=== PATIENT | male | born 1960 | race Two or more races ===

== ENCOUNTER 2022-02-12 11:26 | Emergency (ER) | payer MEDICAID ==
[~2022-02-12] VITALS: Ht 185.4 cm; Wt 112.0 kg
[2022-02-12 11:33] VITALS: BP 136/72
[2022-02-12 13:30] LABS: Basophils # (auto) 0.1 10 ^3/uL (0-0.2); Basophils % (auto) 1.2 % (0.0-2.0); Eosinophils # (auto) 0.8 10 ^3/uL (0-0.8); Eosinophils % (auto) 7.8 % (0.0-7.0); Hematocrit 41.7 % (41.0-53.0); Hemoglobin 13.9 g/dL (13.5-17.5); Lymphocytes # (auto) 2.8 10 ^3/uL (0.4-5.4); Lymphocytes % (auto) 27.1 % (10.0-50.0); Mean Corpuscular Hemoglobin 32.6 pg (28.0-32.0); Mean Corpuscular Hgb Conc. 33.4 g/dL (32.0-36.0); Mean Corpuscular Volume 97.5 fL (80.0-100.0); Monocytes # (auto) 1.1 10 ^3/uL (0-1.3); Monocytes % (auto) 10.3 % (0.0-12.0); Neutrophils # (auto) 5.6 10 ^3/uL (1.6-8.6); Neutrophils % (auto) 53.6 % (37.0-80.0); Nucleated Red Blood Cells % 0.2 %; Red Blood Cells 4.28 10^6/uL (4.5-5.90); Red Cell Distribution Width 15.7 % (11.8-14.3); White Blood Cell 10.4 10^3/uL (4.4-10.8)
[2022-02-12 13:42] LABS: Albumin 3.5 g/dL (3.4-5.0); BUN/Creatinine Ratio 12.8; Calcium 8.9 mg/dL (8.5-10.1); Potassium 4.2 mmol/L (3.5-5.1)
[2022-02-12 13:43] LABS: Bilirubin, Total 0.5 mg/dL (0.2-1.0); Total Protein 7.1 g/dL (6.4-8.2)
[2022-02-12 13:46] LABS: INR 0.97 (0.9-1.15); Partial Thromboplastin Time 28.2 sec (24.6-33.4)
[2022-02-12] MEDS ORDERED: CEPH-510 PO (15:18)
== END 2022-02-12 20:41 | disposition left against medical advice (07) ==
LOC: ER 11:26
DX: L03.115 Cellulitis of right lower limb (principal); L02.415 Cutaneous abscess of right lower limb; I11.0 Hypertensive heart disease with heart failure; I50.9 Heart failure, unspecified; J44.9 Chronic obstructive pulmonary disease, unspecified; I48.91 Unspecified atrial fibrillation
CPT/HCPCS: 36415; 80053; 83605; 83880; 85025; 85610; 85730; 87040; 93971

== ENCOUNTER 2024-01-27 15:02 | Emergency (ER) | payer MEDICAID ==
[~2024-01-27] VITALS: Ht 177.8 cm; Wt 120.0 kg
[~2024-01-27 15:02] MED LIST: CEPH-510 PO
[2024-01-27 15:10] VITALS: BP 99/60; PULSE 80; RESP 18; O2SAT 96
[2024-01-27] MEDS ORDERED: NAPR-746 PO (16:35)
[2024-01-27] MEDS ORDERED: CEPH500C PO (16:35)
[2024-01-27] MEDS ORDERED: ACET-1080 PO (16:39)
== END 2024-01-27 16:49 | disposition home or self-care (01) ==
LOC: EDUNIT# 15:02 → EDBD 15:02 → ER 15:02
DX: S01.81XA Laceration without foreign body of other part of head, initial encounter (principal); I11.0 Hypertensive heart disease with heart failure; I50.9 Heart failure, unspecified; I48.91 Unspecified atrial fibrillation; J44.9 Chronic obstructive pulmonary disease, unspecified; F15.90 Other stimulant use, unspecified, uncomplicated; Z98.890 Other specified postprocedural states; Z79.899 Other long term (current) drug therapy; W18.39XA Other fall on same level, initial encounter; Y93.89 Activity, other specified; Y92.89 Other specified places as the place of occurrence of the external cause; Y99.8 Other external cause status
CPT/HCPCS: 12014; 70450